=== PATIENT | female | born 1985 | race African-American/Black ===

== ENCOUNTER 2017-03-15 11:29 | Emergency (ER) | payer OTHER ==
[~2017-03-15] VITALS: Ht 175.3 cm; Wt 76.3 kg
[2017-03-15] MEDS ORDERED: DILANTIN100 MG PO (11:57)
[2017-03-15] MEDS ORDERED: KEPPRA500 MG PO (11:57)
[2017-03-15 12:28] VITALS: BP 122/79
== END 2017-03-15 12:30 | disposition home or self-care (01) ==
LOC: EME 11:29
DX: G40.909 Epilepsy, unspecified, not intractable, without status epilepticus (principal); T42.6X6A Underdosing of other antiepileptic and sedative-hypnotic drugs, initial encounter; T42.0X6A Underdosing of hydantoin derivatives, initial encounter; Z91.128 Patient's intentional underdosing of medication regimen for other reason; F17.200 Nicotine dependence, unspecified, uncomplicated
CPT/HCPCS: 99281; 99283

== ENCOUNTER 2017-04-30 16:11 | Emergency (ER) | payer OTHER ==
[~2017-04-30] VITALS: Ht 175.3 cm; Wt 76.0 kg
[~2017-04-30 16:11] MED LIST: DILANTIN100 MG PO; KEPPRA500 MG PO
[2017-04-30] MEDS ORDERED: ZITHROMAX Z-PA250 MG PO (17:19)
[2017-04-30 17:36] VITALS: BP 118/76
== END 2017-04-30 17:37 | disposition home or self-care (01) ==
LOC: EME 16:11
DX: J40 Bronchitis, not specified as acute or chronic (principal); J02.9 Acute pharyngitis, unspecified; G40.909 Epilepsy, unspecified, not intractable, without status epilepticus; F17.200 Nicotine dependence, unspecified, uncomplicated
CPT/HCPCS: 93005; 99281; 99284

== ENCOUNTER 2017-09-05 20:55 | Emergency (ER) | payer SELFPAY ==
[~2017-09-05] VITALS: Ht 175.3 cm; Wt 75.0 kg
[~2017-09-05 20:55] MED LIST changes: +ZITHROMAX Z-PA250 MG PO
[2017-09-05 21:20] LABS: HEMATOCRIT 39.2 % (36.0-46.0); HEMOGLOBIN 13.2 G/DL (11.9-15.5); MCH 30.2 PG (29.0-34.0); MCHC 33.7 G/DL (30.0-36.0); MCV 89.7 FL (83-99); PLATELET COUNT 364 K/uL (156-360); RBC DIS.WIDTH-SD 42.9 % (39-53); RED BLOOD COUNT 4.37 M/uL (3.80-5.20); WHITE BLOOD COUNT 5.2 K/uL (4.1-10.2)
[2017-09-05 22:08] LABS: CARBAMAZEPINE (TEGRETOL) < 2.0 MCG/ML (4.0-12.0); CHLORIDE 106 MEQ/L (99-109); CREATININE 0.8 MG/DL (0.6-1.3); GFR ESTIMATE (CALCULATED) > 59 mL/min/; GLUCOSE 98 mg/dL (70-99); PHENOBARBITAL < 5.0 MCG/ML (15-40); POTASSIUM 3.4 MEQ/L (3.7-5.4); SODIUM 142 MEQ/L (136-147); UREA NITROGEN (BUN) 9 mg/dL (9-23)
[2017-09-05 22:33] VITALS: BP 116/78
== END 2017-09-05 22:33 | disposition home or self-care (01) ==
LOC: EME 20:55
DX: G40.909 Epilepsy, unspecified, not intractable, without status epilepticus (principal); M54.2 Cervicalgia; F17.200 Nicotine dependence, unspecified, uncomplicated
CPT/HCPCS: 80048; 80156; 80184; 80185; 81003; 85027; 99281; 99285; J1165; J1953; J2060; J7050

== ENCOUNTER 2018-03-04 20:00 | Inpatient (IN) | payer OTHER ==
[~2018-03-04] VITALS: Ht 175.3 cm; Wt 72.3 kg
[2018-03-04] MEDS ORDERED: BUSPAR15 MG PO (20:41)
[2018-03-04] MEDS ORDERED: ASMANEX TW200 MICRO1 IH (20:41)
[2018-03-04] MEDS ORDERED: FLEXERIL10 MG PO (20:42)
[2018-03-04] MEDS ORDERED: VOLTAREN75 MG PO (20:43)
[2018-03-04] MEDS ORDERED: COLACE100 MG PO (20:44)
[2018-03-04] MEDS ORDERED: FERROUS GLUCON240 MG PO (20:45)
[2018-03-04 21:50] LABS: HEMATOCRIT 35.1 % (36.0-46.0); HEMOGLOBIN 12.1 G/DL (11.9-15.5); MCH 31.8 PG (29.0-34.0); MCHC 34.5 G/DL (30.0-36.0); MCV 92.1 FL (83-99); PLATELET COUNT 274 K/uL (156-360); RBC DIS.WIDTH-CV 13.3 % (11.8-14.6); RBC DIS.WIDTH-SD 45.4 % (39-53); RED BLOOD COUNT 3.81 M/uL (3.80-5.20); WHITE BLOOD COUNT 7.5 K/uL (4.1-10.2)
[2018-03-04 21:58] LABS: CHLORIDE 109 mEq/L (99-109); POTASSIUM 3.8 mEq/L (3.7-5.4); SODIUM 143 mEq/L (136-147)
[2018-03-04 22:00] LABS: GLUCOSE 82 mg/dL (70-99)
[2018-03-04 22:03] LABS: SERUM ETHYL ALCOHOL < 10 mg/dL
[2018-03-04 22:04] LABS: CREATININE 0.8 mg/dL (0.6-1.3); GFR ESTIMATE (CALCULATED) > 59 mL/min/
[2018-03-04 22:06] LABS: UREA NITROGEN (BUN) 15 mg/dL (9-23)
[2018-03-04 22:07] LABS: ACETAMINOPHEN (TYLENOL) < 10 mcg/mL (10-30); SALICYLATE < 5.0 MG/DL (15-30)
[2018-03-04] MEDS ORDERED: LAMICTAL150 M1 PO (22:08)
[2018-03-04] MEDS ORDERED: MOBIC15 MG PO (22:10)
[2018-03-04 22:13] LABS: QUANTITATIVE HCG < 4.0 MIU/ML
[2018-03-04] MEDS ORDERED: PROAIR RESPICL90 MCG IH (23:09)
[2018-03-04] MEDS ORDERED: ZOLOFT100 MG PO (23:10)
[2018-03-04] MEDS ORDERED: ERGOCALCIF50000 UNIT PO (23:10)
[2018-03-05 07:04] LABS: APPEARANCE SL.HAZY ((CLEAR)); BILIRUBIN NEGATIVE; BLOOD NEGATIVE; COLOR YELLOW ((YELLOW)); GLUCOSE (STRIP) NEGATIVE; KETONES 20; LEUKOCYTES TRACE; NITRITE POSITIVE; PROTEIN (STRIP) NEGATIVE; SPECIFIC GRAVITY 1.023 (1.000-1.030); UROBILINOGEN 0.2 MG/DL (0.2-1.0)
[2018-03-05 07:13] LABS: BACTERIA 3+ /HPF; EPITHELIAL CELLS RARE /HPF; MUCUS 2+ /LPF; RED BLOOD CELLS 0-5 /HPF (0-5)
[2018-03-05 07:14] LABS: AMPHETAMINE NEGATIVE (500 ng/mL); BARBITURATES PRESUMPTIVE POSITIVE (200 ng/mL); BENZODIAZEPINES NEGATIVE (150 ng/mL); BUPRENORPHINE NEGATIVE (10 ng/mL); COCAINE NEGATIVE (150 ng/mL); METHADONE NEGATIVE (200 ng/mL); METHAMPHETAMINE NEGATIVE (500 ng/mL); OPIATES (MORPHINE) NEGATIVE (100 ng/mL); OXYCODONE NEGATIVE (100 ng/mL); PHENCYCLIDINE NEGATIVE (25 ng/mL); PROPOXYPHENE NEGATIVE (300 ng/mL); THC CANNABINOIDS PRESUMPTIVE POSITIVE (50 ng/mL); TRICYCLIC ANTIDEPRESSANTS NEGATIVE (300 ng/mL)
[2018-03-05 16:18] VITALS: BP 128/78
[2018-03-05 16:47] VITALS: BP 128/78
[2018-03-06 07:44] VITALS: BP 117/57
[2018-03-06 16:24] VITALS: BP 111/62
[2018-03-07 07:58] VITALS: BP 107/58
[2018-03-07] MEDS ORDERED: RISPERDAL2 MG PO (09:31)
[2018-03-07] MEDS ORDERED: SERTRALINE HCL100 MG PO (09:31)
== END 2018-03-07 11:38 | disposition home or self-care (01) | DRG 885 ==
LOC: EME 20:00 → 1WEST 03-05 11:51 → EDOF 03-05 11:51 → ENRESERV 03-05 16:10 → 1WEST 03-05 16:14
PROVIDERS: Nurse Practitioner Family
DX: F33.8 Other recurrent depressive disorders (principal); F12.10 Cannabis abuse, uncomplicated; R45.851 Suicidal ideations; G40.909 Epilepsy, unspecified, not intractable, without status epilepticus; F25.9 Schizoaffective disorder, unspecified; F17.210 Nicotine dependence, cigarettes, uncomplicated; Z91.5 Personal history of self-harm; Z79.899 Other long term (current) drug therapy
CPT/HCPCS: 80048; 81003; 84702; 84999; 85027; 90837; 99281; 99285; G0480; J1630; J2794